=== PATIENT | male | born 1995 | race Two or more races ===

== ENCOUNTER 2023-08-01 11:58 | Inpatient (IN) | payer MEDICAID ==
[~2023-08-01] VITALS: Ht 172.7 cm; Wt 81.4 kg
[2023-08-01 12:33] LABS: Basophils # (auto) 0 10 ^3/uL (0-0.2); Basophils % (auto) 0.4 % (0.0-2.0); Eosinophils # (auto) 0.2 10 ^3/uL (0-0.8); Eosinophils % (auto) 2.4 % (0.0-7.0); Hemoglobin 15.9 g/dL (13.5-17.5); Lymphocytes # (auto) 2.4 10 ^3/uL (0.4-5.4); Lymphocytes % (auto) 35.9 % (10.0-50.0); Mean Corpuscular Hemoglobin 30.5 pg (28.0-32.0); Mean Corpuscular Hgb Conc. 34.5 g/dL (32.0-36.0); Mean Corpuscular Volume 88.4 fL (80.0-100.0); Monocytes # (auto) 0.6 10 ^3/uL (0-1.3); Monocytes % (auto) 8.4 % (0.0-12.0); Neutrophils # (auto) 3.5 10 ^3/uL (1.6-8.6); Neutrophils % (auto) 52.9 % (37.0-80.0); Nucleated Red Blood Cells % 0.3 %; Red Cell Distribution Width 13.4 % (11.8-14.3); White Blood Cell 6.7 10^3/uL (4.4-10.8)
[2023-08-01] MEDS ORDERED: NITROGLYCERIN 0.4 MG SL TAB SL ONE (12:45)
[2023-08-01] MEDS ORDERED: ASPirin 325 MG TAB PO ONE (12:45)
[2023-08-01 12:54] LABS: Alanine Aminotransferase 19 U/L (7-40); Alkaline Phosphatase 55 U/L (46-116); Anion Gap 8 (5-15); Aspartate Aminotransferase 16 U/L (13-40); BUN/Creatinine Ratio 11.1 (10.0-20.0); Blood Urea Nitrogen 11 mg/dL (9-23); Calcium 10.2 mg/dL (8.5-10.1); Carbon Dioxide 26 mmol/L (20-30); Chloride 106 mmol/L (98-107); Glucose 82 mg/dL (74-106); Potassium 3.9 mmol/L (3.5-5.1); Sodium 140 mmol/L (136-145)
[2023-08-01 12:55] LABS: Albumin 5.2 g/dL (3.2-4.8); Bilirubin, Total 0.6 mg/dL (0.2-1.0); Total Protein 7.9 g/dL (5.7-8.2)
[2023-08-01 16:20] VITALS: PULSE 58; RESP 12; O2SAT 99
[2023-08-01] MEDS ORDERED: MORPHINE SULFATE INJ 2 MG/ml SYRG IV PRN (16:30)
[2023-08-01] MEDS ORDERED: ONDANSETRON HCL 4 MG/2 ML VIAL IV PRN (16:30)
[2023-08-01] MEDS ORDERED: DOCUSATE SOD 100 MG CAP PO PRN (16:30)
[2023-08-01] MEDS: SODIUM CHLORIDE 0.9% 1,000 ML IV SCH (16:58)
[2023-08-01 17:32] LABS: Urine Bacteria NONE SEEN /hpf (None Seen); Urine Blood Negative /uL (Negative); Urine Clarity Clear (Clear); Urine Color Yellow (Yellow); Urine Mucus FEW (None Seen); Urine Protein, UAD TRACE (Negative); Urine Specific Gravity 1.028 (1.001-1.035); Urine Urobilinogen Normal (Negative); Urine WBC 1 /hpf (0 - 3); Urine pH 6.5 (5.0-8.0)
[2023-08-01 17:55] LABS: Magnesium 2.2 mg/dL (1.6-2.6)
[2023-08-01 17:57] LABS: Phosphorus 3.3 mg/dL (2.4-5.1)
[2023-08-01 18:00] LABS: Amphetamine Screen, Urine Neg (NEGATIVE); Barbiturate Scree,Urine Neg (NEGATIVE); Benzodiazephine Screen, Urine Neg (NEGATIVE); Cannabinoid Screen, Urine Neg (NEGATIVE); Cocaine Screen, Urine Neg (NEGATIVE); Opiate Scree,Urine Neg (NEGATIVE); Phencyclidine Screen, Urine Neg (NEGATIVE)
[2023-08-01 18:37] VITALS: BP 133/77
[2023-08-01 20:00] VITALS: PULSE 67
[2023-08-01 22:00] VITALS: BP 109/63; PULSE 73; RESP 18; TEMP 98.2; O2SAT 97
[2023-08-02] VITALS (7 sets, daily range): BP systolic 107–114; BP diastolic 62–77; PULSE 51–67; RESP 16–17; TEMP 97.6–98.1; O2SAT 95–99
[2023-08-02] MEDS: SODIUM CHLORIDE 0.9% 1,000 ML IV SCH ×3 (00:50→17:30)
[2023-08-02 05:53] LABS: Alanine Aminotransferase 17 U/L (7-40); Albumin 4.2 g/dL (3.2-4.8); Alkaline Phosphatase 42 U/L (46-116); Anion Gap 8 (5-15); Aspartate Aminotransferase 13 U/L (13-40); Bilirubin, Total 0.8 mg/dL (0.2-1.0); Blood Urea Nitrogen 7 mg/dL (9-23); Calcium 8.7 mg/dL (8.5-10.1); Carbon Dioxide 24 mmol/L (20-30); Chloride 109 mmol/L (98-107); Glucose 102 mg/dL (74-106); Potassium 4.3 mmol/L (3.5-5.1); Sodium 141 mmol/L (136-145); Total Protein 6.4 g/dL (5.7-8.2)
[2023-08-02 06:02] LABS: Basophils # (auto) 0 10 ^3/uL (0-0.2); Basophils % (auto) 0.4 % (0.0-2.0); Eosinophils # (auto) 0.1 10 ^3/uL (0-0.8); Eosinophils % (auto) 2.7 % (0.0-7.0); Hematocrit 41.9 % (41.0-53.0); Hemoglobin 14.3 g/dL (13.5-17.5); Lymphocytes # (auto) 1.8 10 ^3/uL (0.4-5.4); Lymphocytes % (auto) 35.4 % (10.0-50.0); Mean Corpuscular Hemoglobin 30.4 pg (28.0-32.0); Mean Corpuscular Hgb Conc. 34.1 g/dL (32.0-36.0); Mean Corpuscular Volume 89.3 fL (80.0-100.0); Monocytes # (auto) 0.5 10 ^3/uL (0-1.3); Monocytes % (auto) 8.8 % (0.0-12.0); Neutrophils # (auto) 2.7 10 ^3/uL (1.6-8.6); Neutrophils % (auto) 52.7 % (37.0-80.0); Nucleated Red Blood Cells % 0.2 %; Red Cell Distribution Width 13.8 % (11.8-14.3); White Blood Cell 5.2 10^3/uL (4.4-10.8)
[2023-08-02] MEDS: ASPirin 81 mg TAB PO SCH (09:39)
[2023-08-03] MEDS: SODIUM CHLORIDE 0.9% 1,000 ML IV SCH ×2 (01:13→09:20)
[2023-08-03 04:54] VITALS: BP 125/75; PULSE 93; RESP 17; TEMP 98.2; O2SAT 98
[2023-08-03 08:00] VITALS: PULSE 63; PULSE 65; RESP 15
[2023-08-03 09:00] VITALS: BP 116/74; PULSE 63; RESP 15; TEMP 98.7; O2SAT 100
[2023-08-03] MEDS: ASPirin 81 mg TAB PO SCH (09:20)
[2023-08-03 13:00] VITALS: BP 109/70; PULSE 70; RESP 17; TEMP 97.4; O2SAT 99
[2023-08-03 15:23] VITALS: BP 109/70; PULSE 70; RESP 17; TEMP 97.4; O2SAT 99
[2023-08-05 11:14] LABS: Hepatitis B Core Total AB Negative (Negative)
[2023-08-05 12:25] LABS: Hepatitis A Total Antibody Positive (Negative); Hepatitis B Surface Antibody Positive (Negative); Hepatitis B Surface Antigen Negative (Negative); Hepatitis C Antibody Negative (Negative)
== END 2023-08-03 16:00 | disposition home or self-care (01) | DRG 203 ==
LOC: ER 11:58 → TELE 16:31 → TELE-CENTR 18:02
PROVIDERS: ADMIT Nurse Practitioner Family; ATTEND Internal Medicine
DX: R07.89 Other chest pain (principal); Z82.49 Family history of ischemic heart disease and other diseases of the circulatory system; Z86.19 Personal history of other infectious and parasitic diseases
CPT/HCPCS: 36415; 71045; 71250; 72125; 80053; 80307; 81001; 83615; 83735; 84100; 84443; 84484; 85025; 85379; 86704; 86706; 86708; 86803; 87340; 93005; 93306; G0378